=== PATIENT | female | born 1960 | race Caucasian/White ===

== ENCOUNTER 2018-09-18 05:04 | Observation (INO) | payer SELFPAY ==
[~2018-09-18] VITALS: Ht 177.8 cm; Wt 92.8 kg
[2018-09-18] MEDS ORDERED: ONDANSETRON HCL INJ 2 MG/ML VIAL IV STA (05:06)
[2018-09-18] MEDS ORDERED: SODIUM CHLORIDE 0.9% 1000ML 1,000 ML IV STA (05:06)
[2018-09-18 05:38] LABS: BASOPHILS # (AUTO) 0.1 (0.0-0.1); BASOPHILS % 0.4 % (0.0-1.0); EOSINOPHILS # (AUTO) 0.1 (0.0-0.4); EOSINOPHILS % 0.7 % (0.0-6.0); HEMOGLOBIN 15.3 g/dL (12.0-16.0); LYMPHOCYTES # (AUTO) 1.8 (1.0-3.2); LYMPHOCYTES % 9.3 % (18.0-39.1); MEAN CORPUSCULAR HEMOGLOBIN 29.1 pg (28-32); MEAN CORPUSCULAR HGB CONC 33.3 g/dL (31-35); MEAN CORPUSCULAR VOLUME 87.6 fL (81-99); MONOCYTES # (AUTO) 0.9 (0.2-0.8); MONOCYTES % 4.6 % (4.4-11.3); NEUTROPHILS # (AUTO) 16.3 (2.1-6.9); NEUTROPHILS % 84.5 % (38.7-80.0); PLATELET COUNT 376 x10e3/uL (140-360); RED BLOOD COUNT 5.25 x10e6/uL (3.6-5.1); RED CELL DISTRIBUTION WIDTH 13.5 % (11.7-14.4)
[2018-09-18] MEDS ORDERED: DIATRIZOATE MEGL/DIATRIZOA SOD 30 ML BTL PO ONE (05:41)
[2018-09-18 06:00] LABS: CLARITY,URINE CLEAR (CLEAR); COLOR,URINE YELLOW (YELLOW); KETONES,URINE 2+ (NEGATIVE); LEUKOCYTE ESTERASE ,URINE NEGATIVE (NEGATIVE); NITRITE,URINE NEGATIVE (NEGATIVE); PROTEIN,URINE DIPSTICK TRACE (NEGATIVE); URINE UROBILINOGEN 1 mg/dL (0.2 - 1)
[2018-09-18 06:01] LABS: BILIRUBIN,URINE 2+ (NEGATIVE)
[2018-09-18 06:03] LABS: ALANINE AMINOTRANSFERASE 17 IU/L (0-55); ALBUMIN 3.9 g/dL (3.5-5.0); ALKALINE PHOSPHATASE 111 IU/L (40-150); BLOOD UREA NITROGEN 6 mg/dL (7-26); BUN/CREATININE RATIO 8 (6-25); CALCIUM 9.4 mg/dL (8.4-10.2); CARBON DIOXIDE 19 mmol/L (22-29); CHLORIDE 100 mmol/L (98-107); CREATINE KINASE 31 IU/L (29-168); CREATININE, SERUM 0.75 mg/dL (0.57-1.11); EST GLOMERULAR FILTRATION RATE > 60 ML/MIN (60-); GLUCOSE 143 mg/dL (74-118); LIPASE 7 U/L (8-78); SODIUM 135 mmol/L (136-145)
[2018-09-18 06:26] LABS: BACTERIA,URINE RARE /HPF; EPITHELIAL CELLS,URINE FEW /LPF; WBC,URINE (MAN) 0-5 /HPF (0-5)
[2018-09-18] MEDS ORDERED: SODIUM CHLORIDE 0.9% 50ML 50 ML ONE (06:29)
[2018-09-18] MEDS ORDERED: IOPAMIDOL 370 MG/ML 200 ML INFUS..BTL INJ ONE (06:30)
[2018-09-18] MEDS ORDERED: MORPHINE SULFATE INJ 4 MG/ML INJ IV PRN ×2 (06:45→11:00)
[2018-09-18] MEDS ORDERED: ONDANSETRON HCL INJ 2 MG/ML VIAL IV PRN ×2 (06:45→10:45)
[2018-09-18] MEDS ORDERED: CEFTRIAXONE SOD 1 GM VIAL IV SCH (06:45)
[2018-09-18] MEDS ORDERED: ADVIL200 M1 PO (07:29)
--- NOTE | 2018-09-18 08:07 | Diagnostic Imaging Report ---
PROCEDURE: CT ABDOMEN AND PELVIS WITH CONTRAST TECHNIQUE: The abdomen and pelvis were scanned utilizing a multidetector helical scanner from the diaphragm to the lesser trochanter after the IV administration of 100 cc of Isovue 370 and the oral administration of Gastrografin intermixed with water. Coronal and sagittal multiplanar reformations were obtained. Dose sparing parameters were utilized. DLP: 640.87 mGy-cm COMPARISON: None. INDICATIONS: LLQ ABDOMEN PAIN; RECTAL BLEED; HX OF DIVERTICULITIS; N/V X 2 WEEKS FINDINGS: LOWER THORAX: Minimal basilar scarring. HEPATOBILIARY: There is diffuse fatty infiltration of the liver. No focal hepatic lesions. No biliary ductal dilatation. The gallbladder is absent. Prominent common bile duct related to the prior cholecystectomy. SPLEEN: No splenomegaly. PANCREAS: No focal masses or ductal dilatation. ADRENALS: No adrenal nodules. KIDNEYS/URETERS: No hydronephrosis, stones, or solid mass lesions. Small cyst in the upper pole of the left kidney. PELVIC ORGANS/BLADDER: Unremarkable. PERITONEUM / RETROPERITONEUM: No free air or fluid. LYMPH NODES: Prominent lymph nodes in the left periaortic region. VESSELS: Aortic and iliac vascular calcification. Mild focal aneurysmal bulge measuring 1.8 cm involving the infrarenal aorta. GI TRACT: Descending colon and sigmoid colon wall thickening with mesenteric stranding compatible with diverticulitis. No evidence of perforation. Bowel sutures in the right upper quadrant of the abdomen. BONES AND SOFT TISSUES: Degenerative changes at L4-L5 with disc space narrowing and osteophytosis. IMPRESSION: 1. Diverticulitis involving the descending/sigmoid colon. 2. No evidence of perforation. 3. Diffuse fatty infiltration of the liver. Cal Kennedy D.O. Dictated by: Cal Kennedy D.O. on 09/18/2018 at 8:16 Electronically approved by: Cal Kennedy D.O. on 09/18/2018 at 8:16
[2018-09-18] MEDS ORDERED: METRONIDAZOLE 500MG/NS 100ML 100 ML IV STA (09:10)
[2018-09-18] MEDS ORDERED: CIPROFLOXACIN 400 MG/D5W 200ML 200 ML IV STA (09:10)
[2018-09-18] MEDS ORDERED: MAGNESIUM/ALUMINUM/SIMETHICONE 30 ML UDC PO NR (09:30)
[2018-09-18] MEDS ORDERED: ALBUTEROL/IPRATROPIUM 3 ML NEB NEB ONE (09:45)
[2018-09-18] MEDS ORDERED: MORPHINE SULFATE 2 MG/ML SYR IV PRN (10:45)
[2018-09-18] MEDS ORDERED: LEVOFLOXACIN 500MG/D5W 100ML IV SCH (10:45)
--- OUTSIDE RECORDS SUMMARY | 2018-09-18 10:47 | XMS REPORT ---
Author [facility] Address Unknown Phone Unavailable Care Team Providers Care Oil Transport Driver Name Role Phone Hugo ADAMSON Unavailable Unavailable Problems This patient has no known problems. Allergies, Adverse Reactions, Alerts This patient has no known allergies or adverse reactions. Medications This patient has no known medications. Results Test Description Test Time Test Comments Text Results Atomic Results Result Comments CT ABDOMEN/PELVIS W 2018-09-18 08:16:00 [place] [address] Patient Name: ELAN ALARCON MR #: [id number] : 1960 Age/Sex: 58/F Req #: [id number] Adm Physician: Ordered by: DIMITRIOS ADAMSON MD Report #: [id number] Location: ER Room/Bed: Procedure: [id number] CT/CT ABDOMEN/PELVIS W Exam Date: 09/18/18 Exam Time: 0640 REPORT STATUS: Signed PROCEDURE: CT ABDOMEN AND PELVIS WITH CONTRAST TECHNIQUE: The abdomen and pelvis were scanned utilizing a multidetector helical scanner from the diaphragm to the lesser trochanter after the IV administration of 100 cc of Isovue 370 and the oral administration of Gastrografin intermixed with water. Coronal and sagittal multiplanar reformations were obtained. Dose sparing parameters were utilized. DLP: 640.87 mGy-cm COMPARISON: None. INDICATIONS: LLQ ABDOMEN PAIN; RECTAL BLEED; HX OF DIVERTICULITIS; N/V X 2 WEEKS FINDINGS: LOWER THORAX: Minimal basilar scarring. HEPATOBILIARY: There is diffuse fatty infiltration of the liver. No focal hepatic lesions. No biliary ductal dilatation. The gallbladder is absent. Prominent common bile duct related to the prior cholecystectomy. SPLEEN: No splenomegaly. PANCREAS: No focal masses or ductal dilatation. ADRENALS: No adrenal nodules. KIDNEYS/URETERS: No hydronephrosis, stones, or solid mass lesions. Small cyst in the upper pole of the left kidney. PELVIC ORGANS/BLADDER: Unremarkable. PERITONEUM / RETROPERITONEUM: No free air or fluid. LYMPH NODES: Prominent lymph nodes in the left periaortic region. VESSELS: Aortic and iliac vascular calcification. Mild focal aneurysmal bulge measuring 1.8 cm involving the infrarenal aorta. GI TRACT: Descending colon and sigmoid colon wall thickening with mesenteric stranding compatible with diverticulitis. No evidence of perforation. Bowel sutures in the right upper quadrant of the abdomen. BONES AND SOFT TISSUES: Degenerative changes at L4-L5 with disc space narrowing and osteophytosis. IMPRESSION: 1. Diverticulitis involving the descending/sigmoid colon. 2. No evidence of perforation. 3. Diffuse fatty infiltration of the liver. Didi Ortega D.O. Dictated by: Didi Ortega D.O. on 09/18/2018 at 8:16 Electronically approved by: Didi Ortega D.O. on 09/18/2018 at 8:16 Dictated By: DIDI ORTEGA DO [id number] Transcribed By: ADOLFO on 09/18/18 0816 COPY TO: DIMITRIOS ADAMSON MD
[2018-09-18 12:30] VITALS: BP 137/68
[2018-09-18 13:05] VITALS: BP 137/68
[2018-09-18] MEDS: LEVOFLOXACIN 500MG/D5W 100ML 100 ML IV SCH (13:42)
[2018-09-18] MEDS ORDERED: HYDROMORPHONE 1MG/1ML INJ IV PRN (14:00)
[2018-09-18] MEDS: SODIUM CHLORIDE 0.9% 1000ML 1,000 ML IV SCH (14:51)
[2018-09-18] MEDS: METRONIDAZOLE 500MG/NS 100ML 100 ML IV SCH ×2 (14:51→21:41)
[2018-09-18 14:57] VITALS: BP 137/68
[2018-09-18 15:21] VITALS: BP 155/74
--- NOTE | 2018-09-18 16:04 | History and Physical ---
CHIEF COMPLAINT: Abdominal pain. HISTORY OF PRESENT ILLNESS: This is a 58-year-old female with morbid obesity with a known history of diverticulitis in the past, who recently had her teeth repaired, who comes in with complaints of abdominal pain ongoing for the last several days. Patient reports that she was taking pain medications due to her teeth being implanted and she got very severely constipated, requiring stool softeners. Patient reports she did not have a bowel movement for several days, leading to her diverticulitis. She denies any fever at home. Has been having decreased oral intake. Patient seen and evaluated at bedside on the medical floor, currently doing well with no other complaints. She reports having several colonoscopies in the past due to her diverticulitis. REVIEW OF SYSTEMS: PERTINENT POSITIVE: Decreased oral intake, abdominal pain. PERTINENT NEGATIVE: Denies any chest pain, palpitation, nausea, vomiting, diarrhea, dysuria, hematuria, frequency, urgency, lightheadedness, dizziness, headache, shortness of breath, cough, congestion, fever or any other complaints. REST OF 14-POINT REVIEW OF SYSTEMS: Have been reviewed with the patient and are negative. ALLERGIES: AZITHROMYCIN, CODEINE, HYDROCODONE, PROCHLORPERAZINE, TRAMADOL. PAST MEDICAL HISTORY: Has a history of diverticulitis. PAST SURGICAL HISTORY: Had her teeth repaired just a few days ago. She also reports having a partial colectomy in the past. FAMILY HISTORY: Hypertension, diabetes. SOCIAL HISTORY: No drugs, no alcohol, does not smoke. Good social support. VITAL SIGNS: Temperature 98.6, pulse is 80, respiratory rate is 20, blood pressure 137/60, pulse ox 96% on 2 liters nasal cannula. LABORATORY DATA: Show white count 19, hemoglobin 15, hematocrit 46, platelets of 376. CHEMISTRY: Sodium 135, potassium is 4, chloride 100, bicarb 19, anion gap of 20, BUN is 6, creatinine is 0.75, glucose is 143, calcium 9.4. Total bilirubin is 0.6, AST 15, ALT 17, alkaline phosphatase is 111. CK 31, troponin is 0.006. Total protein is 7.7, albumin is 3.9, lipase is 7. IMAGING STUDIES: CT abdomen and pelvis showed evidence of diverticulitis involving the descending and sigmoid colon. PHYSICAL EXAMINATION: GENERAL: No acute distress. Alert, oriented x3. Cooperative on examination. HEENT: Head: Normocephalic, atraumatic. Eyes: Pupils equally round and reactive to light bilaterally. Extraocular movements intact bilaterally. Neck was supple with good range of motion. Throat: No evidence of any erythema or exudates in the posterior pharynx. Has poor dentition. PULMONARY: Clear to auscultation bilaterally. No wheezing, no rales, no rhonchi. No crackles appreciated. CARDIOVASCULAR: Positive S1 and S2. No murmurs, rubs or gallops appreciated. ABDOMEN: Soft, nondistended, nontender to palpation. Bowel sounds present. MUSCULOSKELETAL: Strength is 5/5 throughout with no evidence of any musculoskeletal deficit on examination. No weakness appreciated. NEUROLOGICAL: Cranial nerves 2-12 grossly intact. No evidence of any neurological deficit on exam. SKIN: Intact. Warm to touch. Good capillary refill. PSYCHIATRIC: Normal affect and mood. EXTREMITIES: No edema. Good range of motion throughout. IMPRESSION: 1. Acute diverticulitis. 2. Abdominal pain with nausea and vomiting. 3. Decreased oral intake. 4. Medical noncompliance. 5. Drug-seeking behavior. ASSESSMENT AND PLAN: At this time will continue with IV antibiotics with Levaquin and Flagyl. Continue with pain control. IV fluids. Clear liquid diet, advance as tolerated. Get a.m. labs. At this time will hold off GI consultation because she reports she has had multiple colonoscopies, and currently she is improving. She has had some pain but much improved compared to this morning. Will make sure she has stool softeners as well, and I will give her a bottle of magnesium citrate as well to help with the increased bowel movement and stool softener. Job#: [id number] EV
[2018-09-18] MEDS ORDERED: METRONIDAZOLE 500MG/NS 100ML 100 ML IV SCH (17:00)
[2018-09-18] MEDS: PROMETHAZINE 25MG/ NS 50ML (IV) IV PRN (17:55)
[2018-09-18] MEDS: HYDROMORPHONE 2MG/ML 2 MG/ML ML IV PRN (18:39)
[2018-09-19] VITALS (8 sets, daily range): BP systolic 137–160; BP diastolic 69–83
[2018-09-19] MEDS: HYDROMORPHONE 2MG/ML 2 MG/ML ML IV PRN ×5 (02:50→20:57)
[2018-09-19] MEDS: PROMETHAZINE 25MG/ NS 50ML (IV) IV PRN ×3 (02:50→20:58)
[2018-09-19] MEDS: SODIUM CHLORIDE 0.9% 1000ML 1,000 ML IV SCH ×2 (03:26→14:55)
[2018-09-19 05:14] LABS: BASOPHILS # (AUTO) 0.1 (0.0-0.1); BASOPHILS % 0.6 % (0.0-1.0); EOSINOPHILS # (AUTO) 0.2 (0.0-0.4); EOSINOPHILS % 1.5 % (0.0-6.0); HEMATOCRIT 38.5 % (34.2-44.1); HEMOGLOBIN 12.5 g/dL (12.0-16.0); LYMPHOCYTES # (AUTO) 2.3 (1.0-3.2); LYMPHOCYTES % 17.7 % (18.0-39.1); MEAN CORPUSCULAR HEMOGLOBIN 29.3 pg (28-32); MEAN CORPUSCULAR HGB CONC 32.5 g/dL (31-35); MEAN CORPUSCULAR VOLUME 90.4 fL (81-99); MONOCYTES # (AUTO) 0.9 (0.2-0.8); MONOCYTES % 6.6 % (4.4-11.3); NEUTROPHILS # (AUTO) 9.5 (2.1-6.9); NEUTROPHILS % 73.2 % (38.7-80.0); PLATELET COUNT 276 x10e3/uL (140-360); RED BLOOD COUNT 4.26 x10e6/uL (3.6-5.1); RED CELL DISTRIBUTION WIDTH 13.5 % (11.7-14.4)
[2018-09-19] MEDS: METRONIDAZOLE 500MG/NS 100ML 100 ML IV SCH ×3 (05:18→22:07)
[2018-09-19 05:37] LABS: ALANINE AMINOTRANSFERASE 36 IU/L (0-55); ALBUMIN 2.9 g/dL (3.5-5.0); ALKALINE PHOSPHATASE 112 IU/L (40-150); ANION GAP 15.8 mmol/L (8-16); BLOOD UREA NITROGEN 7 mg/dL (7-26); BUN/CREATININE RATIO 11 (6-25); CALCIUM 8.1 mg/dL (8.4-10.2); CARBON DIOXIDE 21 mmol/L (22-29); CHLORIDE 104 mmol/L (98-107); CREATININE, SERUM 0.63 mg/dL (0.57-1.11); EST GLOMERULAR FILTRATION RATE > 60 ML/MIN (60-); GLUCOSE 88 mg/dL (74-118); POTASSIUM 3.8 mmol/L (3.5-5.1); SODIUM 137 mmol/L (136-145)
[2018-09-19] MEDS: LEVOFLOXACIN 500MG/D5W 100ML 100 ML IV SCH (10:58)
--- NOTE | 2018-09-19 14:59 | Progress Note ---
DATE: September 19, 2018 MEDICINE PROGRESS NOTE SUBJECTIVE: Patient is doing much better today. She still complains of left lower extremity quadrant pain. She is pooping well. She is still on clear liquid diet, but she does not to advance it at this time. LAB FINDINGS: White count is 12.9, hemoglobin is 12.5, hematocrit is 38.5, platelets of 276. Chemistry: Sodium 137, potassium 3.8, chloride 104, bicarb 21, anion gap of 15, BUN is 7, creatinine is 0.63. Glucose is 88. LFTs were normal. Troponin was negative. Lipase was 7. Albumin 2.9. MICROBIOLOGY: None. IMAGING STUDIES: None. PHYSICAL EXAMINATION VITAL SIGNS: Temperature is 98, pulse 98, respiratory rate is 14, blood pressure 137/78, pulse ox 96% on room air. GENERAL: Not in acute distress. Alert and oriented x3, cooperative on examination. HEENT: Head normocephalic, atraumatic. Eyes: Pupils are equal and reactive to light bilaterally. Extraocular movements intact bilaterally. Throat; no evidence of any erythema or exudates in the posterior pharynx. Has poor dentition. NECK: Supple with good range of motion. PULMONARY: Clear to auscultation bilaterally. No wheezing, no rales, no rhonchi, no crackles appreciated. CARDIOVASCULAR: Positive S1, S2. No murmurs, rubs or gallops appreciated. ABDOMEN: Soft, nondistended. Tender to palpation in the left lower quadrant. SKIN: Intact. Warm to touch. Good capillary refill. PSYCHIATRIC: Normal affect and mood. EXTREMITIES: No edema. Good range of motion throughout. IMPRESSION 1. Acute diverticulitis. 2. Abdominal pain with nausea and vomiting. 3. Decreased oral intake. 4. Medical noncompliance. 5. Drug-seeking behavior. PLAN: At this time, continue with IV antibiotics, Levaquin and Flagyl. Continue with pain control. Will continue with IV fluids. At this time, she does not want to advance her diet. We will continue with clear liquid diet. Get a.m. labs. Patient was given stool softeners, on which she had several bowel movements and is much improved now. We will see if we can advance her diet and hopefully discharge by tomorrow. Job#: [id number] KWAKU
[2018-09-20 00:45] VITALS: BP 162/91
[2018-09-20] MEDS: SODIUM CHLORIDE 0.9% 1000ML 1,000 ML IV SCH ×2 (03:00→06:00)
[2018-09-20 04:00] VITALS: BP 134/64
[2018-09-20 04:59] LABS: BASOPHILS # (AUTO) 0.1 (0.0-0.1); BASOPHILS % 0.5 % (0.0-1.0); EOSINOPHILS # (AUTO) 0.2 (0.0-0.4); EOSINOPHILS % 1.8 % (0.0-6.0); HEMATOCRIT 38.2 % (34.2-44.1); HEMOGLOBIN 12.5 g/dL (12.0-16.0); LYMPHOCYTES # (AUTO) 1.9 (1.0-3.2); LYMPHOCYTES % 16.4 % (18.0-39.1); MEAN CORPUSCULAR HEMOGLOBIN 29.1 pg (28-32); MEAN CORPUSCULAR HGB CONC 32.7 g/dL (31-35); MEAN CORPUSCULAR VOLUME 88.8 fL (81-99); MONOCYTES # (AUTO) 0.6 (0.2-0.8); MONOCYTES % 4.9 % (4.4-11.3); NEUTROPHILS # (AUTO) 8.8 (2.1-6.9); PLATELET COUNT 307 x10e3/uL (140-360); RED CELL DISTRIBUTION WIDTH 13.2 % (11.7-14.4)
[2018-09-20 05:18] LABS: ANION GAP 16.8 mmol/L (8-16); BLOOD UREA NITROGEN 6 mg/dL (7-26); BUN/CREATININE RATIO 10 (6-25); CALCIUM 7.9 mg/dL (8.4-10.2); CARBON DIOXIDE 19 mmol/L (22-29); CHLORIDE 104 mmol/L (98-107); EST GLOMERULAR FILTRATION RATE > 60 ML/MIN (60-); GLUCOSE 90 mg/dL (74-118); POTASSIUM 3.8 mmol/L (3.5-5.1); SODIUM 136 mmol/L (136-145)
[2018-09-20] MEDS: METRONIDAZOLE 500MG/NS 100ML 100 ML IV SCH ×2 (05:20→14:20)
[2018-09-20] MEDS: PROMETHAZINE 25MG/ NS 50ML (IV) IV PRN ×2 (06:18→12:40)
[2018-09-20] MEDS: HYDROMORPHONE 2MG/ML 2 MG/ML ML IV PRN ×2 (06:18→10:26)
[2018-09-20 08:00] VITALS: BP 137/75
[2018-09-20] MEDS: LEVOFLOXACIN 500MG/D5W 100ML 100 ML IV SCH (10:26)
[2018-09-20 12:00] VITALS: BP 147/77
[2018-09-20] MEDS ORDERED: CIPRO500 MG PO (13:34)
[2018-09-20] MEDS ORDERED: FLAGYL250 MG PO (13:35)
[2018-09-20] MEDS ORDERED: phenergan PO (13:39)
--- NOTE | 2018-09-21 01:45 | Discharge Summary ---
FINAL DISCHARGE DIAGNOSES 1. Acute diverticulitis. 2. Abdominal pain with nausea and vomiting, resolved. 3. Medical noncompliance. 4. Concerns for drug-seeking behavior. CONSULTANTS: None. VITAL SIGNS: Temperature is 97.5, pulse 79, respiratory rate is 14, blood pressure 147/77, and pulse ox 97% on room air. LAB FINDINGS: White count of 11.5, hemoglobin 12.5, hematocrit is 38, and platelets of 307. Chemistry; sodium 136, potassium 3.8, chloride 104, bicarb is 19, anion gap is 16, BUN is 6, and creatinine 0.6. Calcium is 7.9. LFTs were normal. Troponins were negative. MICROBIOLOGY: None. IMAGING STUDIES: CT abdomen and pelvis with IV contrast consistent with diverticulitis involving the descending and sigmoid colon. HOSPITAL COURSE: A 58-year-old female who came into the ED with complaints of abdominal pain, nausea, vomiting, and decreased oral intake. CT imaging was consistent with acute diverticulitis. Patient was started on IV antibiotics, anti-nausea medications as well as control. Patient started on clear liquid diet, advanced to solids, which she tolerated well. On the day of discharge, vital signs stable, labs reviewed and stable. Patient seen and evaluated and examined thoroughly on the day of discharge with no other complaints. Patient verbalized understanding and agreed with the plan of care, to follow up accordingly as an outpatient with the primary care physician in 1 week and the GI specialist in 2 weeks' time for colonoscopy. DISCHARGE MEDICATIONS: See med reconciliation form including Cipro 500 mg 1 tab p.o. b.i.d. x10 days, Flagyl 500 mg 1 tab p.o. t.i.d. x10 days, and Phenergan 25 mg 1 tab p.o. q.6h. p.r.n. for nausea. DISPOSITION: Home. CONDITION: Stable. DIET: Heart healthy. In the event of any worsening symptoms, the patient is advised to come back to the ED for further evaluation. Discharge summary took greater than 35 minutes. Job#: [id number] MARIO ALBERTO
== END 2018-09-20 15:44 | disposition home or self-care (01) ==
LOC: ER 05:04 → ERHOLD 10:44 → IMCU 12:10
PROVIDERS: ADMIT Internal Medicine; ATTEND Internal Medicine
DX: K57.32 Diverticulitis of large intestine without perforation or abscess without bleeding (principal); J44.1 Chronic obstructive pulmonary disease with (acute) exacerbation; Z87.891 Personal history of nicotine dependence; E66.01 Morbid (severe) obesity due to excess calories; Z88.1 Allergy status to other antibiotic agents; Z88.5 Allergy status to narcotic agent; Z88.8 Allergy status to other drugs, medicaments and biological substances; Z83.3 Family history of diabetes mellitus; Z82.49 Family history of ischemic heart disease and other diseases of the circulatory system; Z91.19 Patient's noncompliance with other medical treatment and regimen; Z76.5 Malingerer [conscious simulation]
CPT/HCPCS: 36415 ×3; 74177; 80048; 80053 ×2; 81001; 82550; 82553; 83690; 84484; 85025 ×3; 96361 ×2; 99284; G0378 ×3; J0696; J0744; J1170 ×3; J1956 ×3; J2270; J2405; J2550 ×3; J7030 ×3; Q9663; Q9967